=== PATIENT | male | born 1945 | race Caucasian/White ===

== ENCOUNTER → 2017-02-12 11:30 | Outpatient (REF) | payer MEDICARE, SELFPAY | LOC: OLS.DANBUR 11:30 | PROVIDERS: Visit Provider Family Medicine | DX: I48.91 Unspecified atrial fibrillation (principal); Z79.01 Long term (current) use of anticoagulants | CPT/HCPCS: 36416; 85610 ==

== ENCOUNTER → 2017-03-17 05:00 | Outpatient (REF) | payer MEDICARE, SELFPAY ==
[2017-03-17 08:01] LABS: Prothrombin Time Fingerstick 22.4 SEC (11.9-14.4)
== END ==
LOC: OLS.DANBUR 05:00
PROVIDERS: Visit Provider Family Medicine
DX: I48.91 Unspecified atrial fibrillation (principal); Z79.01 Long term (current) use of anticoagulants; J44.9 Chronic obstructive pulmonary disease, unspecified
CPT/HCPCS: 36416; 85610

== ENCOUNTER → 2017-04-01 05:00 | Outpatient (REF) | payer SELFPAY ==
[2017-04-01 07:46] LABS: Prothrombin Time Fingerstick 21.1 SEC (11.9-14.4)
== END ==
LOC: OLS.DANBUR 05:00
PROVIDERS: Visit Provider Family Medicine
DX: I48.91 Unspecified atrial fibrillation (principal); J44.9 Chronic obstructive pulmonary disease, unspecified; F03.90 Unspecified dementia, unspecified severity, without behavioral disturbance, psychotic disturbance, mood disturbance, and anxiety; Z79.01 Long term (current) use of anticoagulants
CPT/HCPCS: 36416; 85610

== ENCOUNTER → 2017-04-08 04:00 | Outpatient (REF) | payer SELFPAY ==
[2017-04-08 06:56] LABS: Prothrombin Time Fingerstick 24.8 SEC (11.9-14.4)
== END ==
LOC: OLS.DANBUR 04:00
PROVIDERS: Visit Provider Family Medicine
DX: Z79.01 Long term (current) use of anticoagulants (principal)
CPT/HCPCS: 36416; 85610

== ENCOUNTER → 2017-05-06 05:00 | Outpatient (REF) | payer MEDICARE, SELFPAY ==
[2017-05-06 07:36] LABS: Prothrombin Time Fingerstick 34.3 SEC (11.9-14.4)
== END ==
LOC: OLS.DANBUR 05:00
PROVIDERS: Visit Provider Family Medicine
DX: I48.91 Unspecified atrial fibrillation (principal); J44.9 Chronic obstructive pulmonary disease, unspecified; Z79.01 Long term (current) use of anticoagulants
CPT/HCPCS: 36416; 85610

== ENCOUNTER → 2017-05-19 05:00 | Outpatient (REF) | payer SELFPAY ==
[2017-05-19 10:06] LABS: Prothrombin Time Fingerstick 26.4 SEC (11.9-14.4)
== END ==
LOC: OLS.DANBUR 05:00
PROVIDERS: Visit Provider Family Medicine
DX: Z79.01 Long term (current) use of anticoagulants (principal)
CPT/HCPCS: 36416; 85610

== ENCOUNTER → 2017-06-02 05:00 | Outpatient (REF) | payer SELFPAY ==
[2017-06-02 07:00] LABS: Prothrombin Time Fingerstick 26.7 SEC (11.9-14.4)
== END ==
LOC: OLS.DANBUR 05:00
PROVIDERS: Visit Provider Family Medicine
DX: Z79.01 Long term (current) use of anticoagulants (principal)
CPT/HCPCS: 36416; 85610

== ENCOUNTER → 2017-06-17 05:00 | Outpatient (REF) | payer SELFPAY ==
[2017-06-17 07:45] LABS: Prothrombin Time Fingerstick 19.5 SEC (11.9-14.4)
== END ==
LOC: OLS.DANBUR 05:00
PROVIDERS: Visit Provider Family Medicine
DX: Z79.01 Long term (current) use of anticoagulants (principal)
CPT/HCPCS: 36416; 85610

== ENCOUNTER → 2017-06-24 05:00 | Outpatient (REF) | payer SELFPAY ==
[2017-06-24 08:25] LABS: Prothrombin Time Fingerstick 37.3 SEC (11.9-14.4)
== END ==
LOC: OLS.DANBUR 05:00
PROVIDERS: Visit Provider Family Medicine
DX: Z79.01 Long term (current) use of anticoagulants (principal)
CPT/HCPCS: 36416; 85610

== ENCOUNTER → 2017-06-27 13:07 | Outpatient (REF) | payer MEDICARE, SELFPAY ==
[2017-06-27 14:18] LABS: Color, Urine Yellow (Yellow); Glucose, Dipstick Normal (Normal); Ketone-Dipstick 5 mg/dl (Negative); Leukocyte Esterase-Dipstick 25 /ul (Negative); Nitrite-Dipstick Negative (Negative); Occult Blood-Urine 10 /ul (Negative); Protein-Dipstick 30 mg/dl (Negative); Specific Gravity, Urine 1.015 (1.002-1.030); Urine Bilirubin Dipstick 1 mg/dL (Negative); Urine Clarity Clear (Clear); Urine Urobilinogen 4 mg/dl (Normal)
== END ==
LOC: OLS.DANBUR 13:07
PROVIDERS: Visit Provider Family Medicine
DX: N39.0 Urinary tract infection, site not specified (principal); Z87.440 Personal history of urinary (tract) infections
CPT/HCPCS: 81002; 87077; 87086; 87088; 87186